=== PATIENT | male | born 1965 ===

== ENCOUNTER 2018-08-25 14:51 | Emergency (ER) | payer BC ==
[2018-08-25 14:56] VITALS: O2SAT 98
--- NOTE | 2018-08-25 15:42 | ED PDOC ---
HPI: Abdomen Time Seen by Provider: 08/25/18 15:08 Chief Complaint (Nursing): GI Problem Chief Complaint (Provider): GI Problem History Per: Patient History/Exam Limitations: no limitations Onset/Duration Of Symptoms: Days (x2) Outside of [place] travel?: No Current Symptoms Are (Timing): Still Present Location Of Pain/Discomfort: LLQ Quality Of Discomfort: "Pain" Associated Symptoms: Diarrhea (bloody, watery). denies: Fever, Vomiting Alleviating Factors: None Additional Complaint(s): 52 year old male with a history of diverticulitis presents to the ED with LLQ abdominal pain and bloody, watery diarrhea onset x2 days. Patient reports after eating a greasy steak sandwich yesterday, he passed blood in stool with associated abdominal discomfort. He took Tylenol with no relief. Today he had another episode of watery, bloody diarrhea, prompting ED visit. Patient denies vomiting, fever, decrease in appetite, travel, antibiotics, or known sick contacts. He has not taken Advil or aspirin. PMD: Tomás Franklin Past Medical History Reviewed: Historical Data, Nursing Documentation, Vital Signs Vital Signs: Last Vital Signs Temp 99.2 F 08/25/18 14:56 Pulse 89 08/25/18 14:56 Resp 20 08/25/18 14:56 BP 135/87 08/25/18 14:56 Pulse Ox 98 08/25/18 14:56 - Medical History PMH: Diverticulitis - Surgical History Other surgeries: right foot surgery - Family History Family History: States: Other Other Family History: Brother had prostate CA - Social History Current smoker - smoking cessation education provided: No Ex-Smoker (has not smoked in the last 12 months): Yes Alcohol: None - Allergies Allergies/Adverse Reactions: Allergies Allergy/AdvReac Type Severity Reaction Status Date / Time No Known Allergies Allergy Verified 08/25/18 14:58 Review of Systems ROS Statement: Except As Marked, All Systems Reviewed And Found Negative Constitutional: Negative for: Fever Gastrointestinal: Positive for: Abdominal Pain (LLQ), Diarrhea (bloody, watery). Negative for: Vomiting Physical Exam - Reviewed Nursing Documentation Reviewed: Yes Vital Signs Reviewed: Yes - Physical Exam Appears: Positive for: Non-toxic, No Acute Distress Head Exam: Positive for: ATRAUMATIC, NORMOCEPHALIC Skin: Positive for: Normal Color, Warm, Dry Eye Exam: Positive for: EOMI, Normal appearance, PERRL Neck: Positive for: Normal Cardiovascular/Chest: Positive for: Regular Rate, Rhythm Respiratory: Positive for: Normal Breath Sounds. Negative for: Respiratory Distress Gastrointestinal/Abdominal: Positive for: Tenderness (LLQ ), Distended (mildly). Negative for: Guarding, Rebound Extremity: Positive for: Normal ROM (upper and lower). Negative for: Pedal Edema, Deformity Neurologic/Psych: Positive for: Alert, Oriented (x3) - Laboratory Results Result Diagrams: 08/25/18 16:06 08/25/18 16:06 - ECG O2 Sat by Pulse Oximetry: 98 (RA) Pulse Ox Interpretation: Normal Medical Decision Making Medical Decision Making: Time: 1533 Initial Impression: Left lower quadrant tenderness, bloody diarrhea Differential diagnoses include but are not limited to: acute colitis or acute diverticulitis. Most likely infectious, possibly inflammatory (IBD). Initial Plan: --Type and screen --CT abdomen and pelvis --BMP --CBC --ESR --PTT --PT/INR --Bentyl 10 mg PO --------- Scribe Attestation: Documented by Cassidy Toney, acting as a scribe for Suellen Salcedo MD Provider Scribe Attestation: All medical record entries made by the Scribe were at my direction and personally dictated by me. I have reviewed the chart and agree that the record accurately reflects my personal performance of the history, physical exam, medical decision making, and the department course for this patient. I have also personally directed, reviewed, and agree with the discharge instructions and disposition. Disposition - Clinical Impression Clinical Impression: Abdominal pain, Bloody stool - Patient ED Disposition Is Patient to be Admitted: Transfer of Care Counseled Patient/Family Regarding: Studies Performed, Diagnosis - Disposition Disposition: Transfer of Care Disposition Time: 17:00 Condition: STABLE Patient Signed Over To: Noelle Stuart
[2018-08-25 16:21] LABS: BASO # 0.1 K/uL (0.0-0.2); BASO % 0.9 % (0.0-2.0); EOS # 0.1 K/uL (0.0-0.7); HEMOGLOBIN 14.1 g/dL (12.0-18.0); LYMPH # 1.8 K/uL (1.0-4.3); LYMPH % 25.6 % (20.0-40.0); MEAN CELL VOLUME 94.6 fl (80.0-94.0); MEAN CORPUSCULAR HEMOGLOBIN 31.5 pg (27.0-31.0); MEAN CORPUSCULAR HGB CONC 33.3 g/dL (33.0-37.0); MEAN PLATELET VOLUME 8.1 fl (7.2-11.7); MONO # 0.6 K/uL (0.0-0.8); NEUT # 4.4 K/uL (1.8-7.0); NEUT % 62.5 % (50.0-75.0); NRBC % 0.1 % (0.0-0.0); RBC 4.46 Mil/uL (4.40-5.90); RED CELL DISTRIBUTION WIDTH 12.5 % (11.5-14.5)
[2018-08-25 16:24] LABS: BLOOD UREA NITROGEN 17 mg/dl (9-20); GFR NON-AFRICAN AMERICAN > 60
--- NOTE | 2018-08-25 17:05 | ED PDOC ---
- Laboratory Results Result Diagrams: 08/25/18 16:06 08/25/18 16:06 - ECG O2 Sat by Pulse Oximetry: 98 (RA) Pulse Ox Interpretation: Normal Medical Decision Making Medical Decision Making: Time: 1699 --Patient signed out to this provider by Dr. Salcedo pending CT. If there are no abnormalities, patient can be discharged home with Cipro and Flagyl and GI follow-up. If there are abnormalities, consult the appropriate service. Time: 1846 CT Abdomen and Pelvis FINDINGS: LUNG BASES: The lung bases appear clear. No pleural effusions are seen. LIVER: Small approximate 7 mm cyst suspected within the right lobe of the liver. GALLBLADDER AND BILE DUCTS: The gallbladder appears within normal limits. No radioopaque gallstones are seen. No biliary ductal dilatation is evident. PANCREAS: Unremarkable. SPLEEN: Unremarkable. ADRENAL GLANDS: Unremarkable. KIDNEYS, URETERS, AND BLADDER: The kidneys appear within normal limits. There is no hydronephrosis or hydroureter. No urinary calculi are seen. STOMACH AND BOWEL: Unremarkable appearance of the stomach and bowel. No evidence of bowel ob struction. No evidence suggesting enteritis or colitis. There are diverticular changes within the descending and particularly the sigmoid colon with thickening of the wall the sigmoid colon raising the possibility of diverticulitis. There is no diverticular abscess or mass or fluid collection. APPENDIX: No evidence of acute appendicitis on CT examination. PERITONEUM: No free fluid. No free air. LYMPH NODES: No lymphadenopathy is evident. VASCULATURE: No evidence of abdominal aortic aneurysm. BONES: No aggressive appearing osseous lesion. No acute osseous pathology evident. IMPRESSION: Extensive diverticular changes involving the descending and sigmoid colon with thickening of the wall of the sigmoid colon and diverticulitis may be considered. No diverticular abscess or mass present. Clinical correlation advised. Time: 1933 --CT shows diverticulitis, otherwise unremarkable. Patient to be discharge home with Cipro and Flagyl and advised to follow up with gastroenterology. ---- Scribe Attestation: Documented by Cassidy Toney, acting as a scribe for Noelle Stuart MD Provider Scribe Attestation: All medical record entries made by the Scribe were at my direction and personal ly dictated by me. I have reviewed the chart and agree that the record accurately reflects my personal performance of the history, physical exam, medical decision making, and the department course for this patient. I have also personally directed, reviewed, and agree with the discharge instructions and disposition. Disposition - Clinical Impression Clinical Impression: Abdominal pain, Bloody stool, Diverticulitis - POA Present On Arrival: None - Disposition Referrals: Chucho Hill MD [Medical Doctor] - Disposition: Routine/Home Disposition Time: 19:34 Condition: IMPROVED Prescriptions: RX: Ciprofloxacin [Cipro] 500 mg PO BID #20 tab Metronidazole [Flagyl] 500 mg PO TID #30 tablet Instructions: Diverticulitis, Bloody Stools, Adult (DC) Forms: [facility] (Icelandic) Print Language: SALVADOREAN
[2018-08-25] MEDS ORDERED: Iohexol 300 100 ML IJ ONE (17:42)
[2018-08-25] MEDS ORDERED: Sodium Chloride 0.9% 50 ML IV ONE (17:42)
[2018-08-25 18:03] LABS: PROTHROMBIN TIME 11.3 Seconds (9.8-13.1)
[2018-08-25 18:06] LABS: PARTIAL THROMBOPLASTIN TIME 34.5 Seconds (25.6-37.1)
[2018-08-25 19:44] VITALS: BP 131/78; PULSE 80; RESP 18; TEMP 98.2
--- NOTE | 2018-08-26 10:58 | CT ---
Date of service: 08/25/2018 PROCEDURE: CT Abdomen and Pelvis with contrast HISTORY: LLQ pain bloody stools COMPARISON: None. TECHNIQUE: Contrast dose: 90 mL Omnipaque 300 Radiation dose: Total exam DLP = 558.7 mGy-cm. This CT exam was performed using one or more of the following dose reduction techniques: Automated exposure control, adjustment of the mA and/or kV according to patient size, and/or use of iterative reconstruction technique. FINDINGS: LOWER THORAX: Unremarkable. LIVER: 1.2 cm right hepatic cyst. No gross lesion or ductal dilatation. GALLBLADDER AND BILE DUCTS: Unremarkable. PANCREAS: Unremarkable. No gross lesion or ductal dilatation. SPLEEN: Unremarkable. ADRENALS: Unremarkable. No mass. KIDNEYS AND URETERS: Unremarkable. No hydronephrosis. No solid mass. VASCULATURE: Unremarkable. No aortic aneurysm. No aortic atherosclerotic calcification or mural plaque present. BOWEL: Thickening of the descending and sigmoid colon with pericolonic inflammatory change. Colonic diverticulosis. No obstruction. No gross mural thickening. APPENDIX: Normal appendix. PERITONEUM: Unremarkable. No free fluid. No free air. LYMPH NODES: Unremarkable. No enlarged lymph nodes. BLADDER: Unremarkable. REPRODUCTIVE: Unremarkable. BONES: L5-S1 degenerative changes. No acute fracture. OTHER FINDINGS: None. IMPRESSION: Infectious/inflammatory descending/sigmoid colitis with a without superimposed uncomplicated sigmoid diverticulitis.
== END 2018-08-25 19:46 | disposition home or self-care (01) ==
LOC: H.ER 14:51
DX: R10.9 Unspecified abdominal pain (principal); Z87.891 Personal history of nicotine dependence; K92.1 Melena; K57.92 Diverticulitis of intestine, part unspecified, without perforation or abscess without bleeding
CPT/HCPCS: 74177; 80048; 85025; 85610; 85651; 85730; 86850; 86900; 99283; Q9967